=== PATIENT | male | born 1965 | race Caucasian/White ===

== ENCOUNTER 2016-11-17 09:54 | Day surgery (SDC) | payer OTHER ==
[~2016-11-17 09:54] MED LIST: PROPOFOL INJ 200 MG/20 ML VIAL IV ONE
[2016-11-17 11:21] VITALS: BP 138/89
--- NOTE | 2016-11-17 12:16 | Operative Report ---
Operative Report DATE OF SURGERY: 11/17/16 Operative Report: The risks, benefits and alternatives of the procedure including risks of bleeding, perforation requiring surgery are explained to the patient in detail and informed consent is obtained. The patient is placed in a left lateral decubital position and brought back to the endoscopy suite. Timeout is called. Propofol medications administered. A rectal examination is done which did not reveal any masses, tears or fissures. An Olympus videoscope was inserted into the patient's rectum. I then advanced the scope carefully all the way to the cecum. The cecum was identified by the usual anatomical landmarks of the ileocecal valve as well as the appendiceal office. Photodocumentation is obtained. The scope was then sequentially pulled back via the various segments of the colon including the ascending colon, hepatic flexure, transverse colon, splenic flexure, descending colon and finally into the rectosigmoid colon. Retroflexion maneuvers performed. PREOPERATIVE DIAGNOSIS: Colorectal cancer screening POSTOPERATIVE DIAGNOSIS: Normal screening colonoscopy. Mild internal hemorrhoids OPERATION: Diagnostic colonoscopy SURGEON: MICHELLE HAMEED ANESTHESIA: LMAC TISSUE REMOVED OR ALTERED: None. COMPLICATIONS: None. ESTIMATED BLOOD LOSS: none. INTRAOPERATIVE FINDINGS: No diverticulosis, AVMs, polyps noted. PROCEDURE: Patient tolerated the procedure well. No immediate postprocedure complications are noted. Patient is discharged in good condition. Discharge date 11/17/2016. Discharge diet: Regular. Discharge activity: Regular. 2-3 week follow-up to discuss findings 10 year surveillance would be adequate Patient is instructed to call the office or proceed to the emergency room after any postprocedure issues.
== END 2016-11-17 11:22 | disposition home or self-care (01) ==
LOC: END 09:54
PROVIDERS: ATTEND Internal Medicine Gastroenterology
PROC: 0DJD8ZZ Inspection of Lower Intestinal Tract, Via Natural or Artificial Opening Endoscopic (ICD-10-PCS; principal; 2016-11-17 12:30)
DX: K64.8 Other hemorrhoids (principal); R19.5 Other fecal abnormalities; R06.81 Apnea, not elsewhere classified
CPT/HCPCS: 45378; J2704; 810

== ENCOUNTER → 2019-10-08 | Outpatient (CLI) | payer OTHER ==
[2019-10-08 10:24] LABS: ALBUMIN 4.2 g/dL (3.5-5.0); ALKALINE PHOSPHATASE 54 U/L (38-126); ASPARTATE AMINO TRANSFERASE 34 U/L (17-59); BILIRUBIN,DIRECT 0.3 mg/dL (0.0-0.4); BILIRUBIN,TOTAL 0.5 mg/dL (0.2-1.3); TOTAL PROTEIN 7.5 g/dL (6.3-8.2)
== END ==
LOC: DACC 09:11
PROVIDERS: ATTEND Physician Assistant Medical
DX: B35.1 Tinea unguium (principal); L73.8 Other specified follicular disorders; L82.1 Other seborrheic keratosis; B07.8 Other viral warts; L53.8 Other specified erythematous conditions; L29.8 Other pruritus; L82.0 Inflamed seborrheic keratosis; Z79.899 Other long term (current) drug therapy
CPT/HCPCS: 36415; 80076